=== PATIENT | male | born 1940 | race Caucasian/White ===

== ENCOUNTER 2018-03-28 13:32 | Inpatient (IN) | payer MEDICARE ==
[2018-03-28] MEDS ORDERED: Adacel (T-DAP) 0.5 ML VIAL ONE (14:07)
[2018-03-28] MEDS ORDERED: Morphine 4 MG/ML VIAL ONE ×3 (14:07→17:06)
[2018-03-28 14:31] LABS: #Basophils 0.2 thou/uL (0.0-0.2); #Lymphocytes 2.7 thou/uL (1.20-3.40); #Monocytes 0.7 thou/uL (0.11-0.59); #Neutrophils 4.7 thou/uL (1.40-6.50); %Basophils 2.1 % (0.0-1.0); %Eosinophils 10.4 % (0.0-10.0); %Lymphocytes 29.7 % (21.0-51.0); %Monocytes 7.3 % (0.0-10.0); %Neutrophils 50.6 % (42.0-75.0); Hemoglobin 11.7 g/dL (14.0-18.0); Mean Corpuscular HGB CONC 33.2 g/dL (32.0-36.0); Mean Corpuscular Hemoglobin 30.6 pg (27.0-31.0); Mean Corpuscular Volume 92.1 fl (80.0-94.0); Mean Platelet Volume 8.3 fL (7.4-10.4); Platelet Count 159 thou/uL (130-400); RBC Distribution Width 12.2 % (11.5-14.5); Red Blood Cell (RBC) Count 3.84 mill/uL (4.70-6.10); White Blood Cell (WBC) Count 9.3 thou/uL (4.8-10.8)
[2018-03-28 14:37] LABS: INR-International Normal Ratio 1.1; Prothrombin Time 14.5 SEC (12.0-14.7)
[2018-03-28 14:38] LABS: PTT 27.7 SEC (22.9-36.1)
[2018-03-28 14:50] LABS: ALT (SGPT) 26 U/L (8-55); AST (SGOT) 44 U/L (5-34); Albumin 3.4 g/dL (3.4-4.8); Alkaline Phosphatase 77 U/L (40-150); Anion Gap 9 mmol/L (10-20); BUN (Urea Nitrogen) 18 mg/dL (8.4-25.7); Bilirubin, Total 0.9 mg/dL (0.2-1.2); Calc. Creatinine Clearance 0 mL/min (70-130); Calcium 8.8 mg/dL (7.8-10.44); Carbon Dioxide 29 mmol/L (23-31); Chloride 101 mmol/L (98-107); Estimated GFR-MDRD 37; Globulin 2.7 g/dL (2.4-3.5); Glucose 104 mg/dL (83-110); Potassium 3.3 mmol/L (3.5-5.1); Protein, Total 6.1 g/dL (5.8-8.1); Sodium 136 mmol/L (136-145)
[2018-03-28] MEDS ORDERED: Dexamethasone 20 MG/5 ML VIAL ONE (15:26)
[2018-03-28] MEDS ORDERED: PROPOFOL 200 MG/20 ML VIAL ONE (15:26)
[2018-03-28] MEDS ORDERED: Ondansetron HCl/PF 4 MG/2 ML Vial ONE (15:26)
--- NOTE | 2018-03-28 15:58 | RAD ---
PORTABLE CHEST: Date: 03/28/18 HISTORY: Preop. FINDINGS: Heart size and mediastinum are within normal limits. There are atherosclerotic changes of the aorta. Coronary stent is noted. Lungs are clear of infiltrates. No signs of failure. IMPRESSION: Borderline heart size. No acute findings. POS: [facility]
--- NOTE | 2018-03-28 16:03 | RAD ---
RIGHT HIP 2 VIEWS: Date: 03/28/18 HISTORY: Right hip pain. FINDINGS: There is deformity of the subcapital region of the femoral neck which appears to represent a subcapit al femoral neck fracture. IMPRESSION: There is some deformity of the subcapital region of the femoral neck compatible with a subcapital fem oral neck fracture. POS: [facility]
[2018-03-28] MEDS ORDERED: Ondansetron HCl/PF 4 MG/2 ML Vial IVP PRN (16:04)
[2018-03-28] MEDS ORDERED: Ondansetron ODT 4 MG TAB PO PRN (16:04)
[2018-03-28] MEDS ORDERED: Dextrose 5% in Water 1,000 ML IV PRN (16:04)
[2018-03-28] MEDS ORDERED: traMADol HCl 50 MG TAB PO PRN (16:04)
[2018-03-28] MEDS ORDERED: Morphine 4 MG/ML VIAL SLOW IVP PRN ×2 (16:04)
[2018-03-28] MEDS ORDERED: Dextrose 50% Abboject 50 ML SYRINGE SLOW IVP PRN (16:04)
[2018-03-28] MEDS ORDERED: Cyclobenzaprine 10 MG TAB PO PRN (16:04)
--- NOTE | 2018-03-28 16:07 | RAD ---
AP PELVIS: Date: 03/28/18 HISTORY: Fall with right hip pain. FINDINGS: The bones are demineralized. Arthritic changes of both hips are noted. There is deformity to the subc apital region to the right femoral neck, highly suspicious for subcapital femoral neck fracture. Ther e are atherosclerotic changes of the vessels. IMPRESSION: Subcapital fracture right femoral neck. POS: [facility]
[2018-03-28] MEDS ORDERED: CEFAZOLIN/Water 2 GM/20 ML SYRINGE ONE (16:49)
[2018-03-28] MEDS ORDERED: Acetaminophen 1,000 MG in Premix Bag 1 BAG IVPB SCH (18:00)
[2018-03-28] MEDS ORDERED: CEFAZOLIN/Water 2 GM/20 ML SYRINGE SLOW IVP SCH (19:00)
--- NOTE | 2018-03-28 19:06 | RAD ---
TWO VIEWS RIGHT HIP: History: Right hip fracture. FINDINGS: Two intraoperative radiographs submitted. There has been placement of transosseous screws across the right femoral neck fracture. Proximal distal fracture fragments are in good anatomic alignment. IMPRESSION: Open reduction interval fixation of right femoral neck fractures. POS: [facility]
--- NOTE | 2018-03-28 20:09 | HP ---
DATE OF ADMISSION: 03/28/2018 REQUESTING PHYSICIAN: Dr. Mcbride. ATTENDING SURGEON: Dr. Sinclair. CONSULTATION: Orthopedics, Dr. Zepeda. HISTORY OF PRESENT ILLNESS: The patient is a 78-year-old man who was transferred here from [facility] in [place] with a reported right femoral neck fracture. The patient repo rts falling while in the airport in [facility] on 03/26/2018. He was able to make the trans[place]antic zainab urney back home and after continuing to have significant pain and decreased ability to ambulate, he w ent into the emergency department there and underwent evaluation and was noted to have femoral neck f racture, at which time he was transferred to our facility for orthopedic intervention. We were asked to admit the patient and obtain the orthopedic consultation. ALLERGIES: None. CURRENT MEDICATIONS: Plavix, pravastatin, amlodipine, carvedilol. PAST MEDICAL HISTORY: Hyperlipidemia, hypertension, coronary artery disease, abdominal aortic aneury sm. PAST SURGICAL HISTORY: Cardiac stent x2, right kidney stent this month. SOCIAL HISTORY: The patient lives at home with his . Denies drug, alcohol, or tobacco use. REVIEW OF SYSTEMS: A 10-point review of systems is negative, unless otherwise stated. PHYSICAL EXAMINATION: VITAL SIGNS: Blood pressure 165/89, heart rate 60, respirations 16, oxygen saturation is 98% on room air, temperature is 98.5. GENERAL: The patient is resting comfortably in bed. He is awake, alert, oriented x3. [place] coma scale is 15. HEENT: Head is normocephalic, atraumatic. Eyes: Extraocular motions intact. PERRLA bilaterally. Ears are atraumatic without discharge. Oropharynx is clear. NECK: Nontender. Trachea is midline. No JVD. CHEST: Clear to auscultation with good inspiratory and expiratory effort. HEART: Regular rate and rhythm. ABDOMEN: Soft, flat, nontender with active bowel sounds. Pelvis is stable with tenderness to palpat ion to the right hip consistent with his fracture. EXTREMITIES: The patient is neurovascularly intact x4. Capillary refill is less than 3 seconds. Pu lses are 2+. BACK: By report is nontender and atraumatic. LABORATORY DATA: White blood cell count 9.3, hemoglobin 11.7, hematocrit 35.3, platelets 159. Sodiu m 136, potassium 3.3, chloride 101, CO2 of 29, BUN 18, creatinine 1.81, glucose 104. LFTs are unrema rkable. PTT 30, PT 15, INR 1.1. RADIOGRAPHS: AP chest shows borderline heart size, no acute findings. Radiographs of the right hip show deformity of the subcapital region of the femoral neck compatible with a subcapital femoral neck fracture. AP pelvis shows a subcapital fracture of the right femoral neck. ASSESSMENT AND PLAN: 1. Status post ground level fall remote x3 days. 2. Right subcapital femoral neck fracture. 3. Pain secondary to acute trauma. Plan will be to admit the patient to the surgical floor after consultation with Orthopedics. They di d evaluate the patient and because of his n.p.o. status, they will be able to take him to the operati ng room today and do his procedure. Afterwards, we will have the patient moved to the surgical floor for pain control, pulmonary toilet, gastritis, mechanical DVT prophylaxis and start physical and occ upational therapy tomorrow. We will eventually wait for placement.
[2018-03-28] MEDS: Sodium Chloride 0.9% 1,000 ML IV SCH (21:10)
[2018-03-28] MEDS: Famotidine 20 MG TAB PO SCH (21:11)
[2018-03-28 21:48] VITALS: BMI 24.3
[2018-03-29] MEDS: Sodium Chloride 0.9% 1,000 ML IV SCH ×3 (00:14→18:14)
[2018-03-29] MEDS: CEFAZOLIN/Water 2 GM/20 ML SYRINGE SLOW IVP SCH ×3 (01:04→18:08)
[2018-03-29] MEDS: hydrALAZINE 20 MG/ML VIAL SLOW IVP PRN (03:53)
[2018-03-29 05:02] LABS: #Basophils 0.1 thou/uL (0.0-0.2); #Lymphocytes 2.7 thou/uL (1.20-3.40); #Monocytes 0.4 thou/uL (0.11-0.59); #Neutrophils 4.9 thou/uL (1.40-6.50); %Basophils 1.2 % (0.0-1.0); %Eosinophils 0.5 % (0.0-10.0); %Lymphocytes 32.5 % (21.0-51.0); %Monocytes 5.4 % (0.0-10.0); %Neutrophils 60.4 % (42.0-75.0); Hemoglobin 11.5 g/dL (14.0-18.0); Mean Corpuscular HGB CONC 33.3 g/dL (32.0-36.0); Mean Corpuscular Hemoglobin 30.7 pg (27.0-31.0); Mean Platelet Volume 8.5 fL (7.4-10.4); Platelet Count 156 thou/uL (130-400); RBC Distribution Width 12.1 % (11.5-14.5); Red Blood Cell (RBC) Count 3.74 mill/uL (4.70-6.10); White Blood Cell (WBC) Count 8.2 thou/uL (4.8-10.8)
[2018-03-29 05:18] LABS: Anion Gap 10 mmol/L (10-20); BUN (Urea Nitrogen) 15 mg/dL (8.4-25.7); Calc. Creatinine Clearance 48 mL/min (70-130); Calcium 8.4 mg/dL (7.8-10.44); Carbon Dioxide 26 mmol/L (23-31); Chloride 106 mmol/L (98-107); Estimated GFR-MDRD 50; Glucose 127 mg/dL (83-110); Potassium 3.6 mmol/L (3.5-5.1); Sodium 138 mmol/L (136-145)
[2018-03-29] MEDS: Levothyroxine Sodium 125 MCG TAB PO SCH (06:02)
[2018-03-29] MEDS: Acetaminophen 325 MG TAB PO PRN ×2 (09:17→16:43)
[2018-03-29] MEDS: traMADol HCl 50 MG TAB PO PRN ×2 (09:17→16:43)
[2018-03-29] MEDS: Amlodipine 5 MG TAB PO SCH (09:17)
[2018-03-29] MEDS ORDERED: Clopidogrel Bisulfate 75 MG TAB PO SCH (10:45)
[2018-03-29] MEDS: Carvedilol 6.25 MG TAB PO SCH ×2 (10:54→20:40)
--- NOTE | 2018-03-29 13:56 | PRG ---
DATE OF SERVICE: 03/29/2018 SUBJECTIVE: The patient is hospital day 2, postop day #1 status post ground level fall that he had 3 days prior to presentation here in which he sustained a right femoral neck fracture. The patient un dernt orthopedic surgery yesterday. He tolerated this procedure well. This morning he was sitting up in bed without assistance. He has no complaints, no issues overnight, he is tolerating a diet th is morning. He states his pain is controlled. He is about to start working with physical therapy. PHYSICAL EXAMINATION: VITAL SIGNS: Temperature is 97.5, heart rate 60, blood pressure 150/77, respirations 18, oxygen satu ration is 96% on room air. GENERAL: The patient is awake, alert, and oriented x3. [place] coma scale is 15. HEENT: Unremarkable. LUNGS: Clear to auscultation with good inspiratory and expiratory effort. HEART: Regular rate and rhythm. ABDOMEN: Soft, flat, nontender with active bowel sounds. EXTREMITIES: Neurovascularly intact x4. Postop dressing is clean, dry, and intact. LABORATORY DATA: White blood cell count 8.2, hemoglobin 11.5, hematocrit 34.4, platelets 156. Sodiu m 138, potassium 3.6, chloride 106, CO2 26, BUN 15, creatinine 1.39, glucose 127. No radiographs to review this morning. ASSESSMENT AND PLAN: 1. Status post ground level fall with delayed presentation. 2. Status post open reduction internal fixation of right hip fracture. The plan will be to continue supportive care, physical and occupational therapy and await final place ment decision.
[2018-03-29] MEDS: Famotidine 20 MG TAB PO SCH (20:19)
[2018-03-29] MEDS ORDERED: Pravastatin Sodium 20 MG TAB PO SCH (21:00)
[2018-03-30] MEDS: Sodium Chloride 0.9% 1,000 ML IV SCH (00:35)
[2018-03-30] MEDS: Acetaminophen 325 MG TAB PO PRN ×3 (01:28→14:03)
[2018-03-30] MEDS: traMADol HCl 50 MG TAB PO PRN ×3 (01:29→14:04)
[2018-03-30] MEDS: hydrALAZINE 20 MG/ML VIAL SLOW IVP PRN (04:23)
[2018-03-30] MEDS: Levothyroxine Sodium 125 MCG TAB PO SCH (06:52)
[2018-03-30] MEDS: Amlodipine 5 MG TAB PO SCH (07:43)
[2018-03-30] MEDS ORDERED: Polyethylene Glycol 3350 17 GM Packet PO SCH (09:00)
[2018-03-30] MEDS ORDERED: Clopidogrel Bisulfate 75 MG TAB PO SCH (09:00)
[2018-03-30] MEDS ORDERED: Senokot S 8.6-50 MG TAB PO SCH (09:00)
[2018-03-30 12:48] VITALS: BP 130/74; TEMP 98.6
--- NOTE | 2018-03-31 11:02 | OP ---
DATE OF SURGERY: 03/28/2018 PREOPERATIVE DIAGNOSIS: Right femoral neck fracture. POSTOPERATIVE DIAGNOSIS: Right femoral neck fracture. SURGICAL PROCEDURE: Closed reduction and percutaneous screw fixation of right femoral neck. ANESTHESIA: General. SURGEON: Edouard Zepeda MD BLOOD LOSS: 10 mL. IMPLANTS: Synthes 7.3-mm cannulated screws x3. COMPLICATIONS: None. DRAINS: None. SPECIMEN: None. OUTCOME: Satisfactory. INDICATIONS: The patient is a pleasant 78-year-old gentleman who fell while in the [place] in [facility] 2 days prior to this admission. Upon return to [facility], he presented to his local emergency room where x-rays demonstrated an impacted, but minimally displaced femoral neck fracture. The maggie ent was subsequently transferred to [facility] for definitive care. Preoperatively, I have discussed with the patient treatment options, which included but are not limited to nonsurgical management, ca nnulated screw fixation, hemiarthroplasty, or total hip arthroplasty. After discussion of the relati ve risks and benefits of each, we have decided upon cannulated screw stabilization. Informed consent has been obtained. I believe all questions have been answered. DESCRIPTION OF PROCEDURE: The patient was brought to the operating room and a time-out performed, fo llowed by induction of general anesthesia. Next, the patient was positioned on the fracture table wi th the affected right lower extremity held in longitudinal traction and the left lower extremity slig htly scissored, so that AP and lateral C-arm images of the right hip could be obtained. A sterile pr ep and drape was then performed of the right lateral thigh. Next, a small 1-inch incision was made j ust distal to the tip of the greater trochanter. After skin was sharply incised, dissection was jason ied down bluntly. Next, a threaded guidewire was passed from the lateral cortex of the femur up the femoral neck into the femoral head in a centralized, but inferior position. This was followed by ins ertion of 2 additional threaded guidewires, one superior and anterior to the first and the other supe rior and posterior to the first. Once an acceptable spread of these threaded guidewires was achieved , measurement off the guidewires was performed to choose the appropriate length, 7.3 mm short-threade d cannulated screw. Next, a drill was used to perforate the lateral cortex of the femur around each of the threaded guidewires, and then appropriate length cannulated screws were inserted under C-arm g uidance. This resulted in excellent stabilization of the fracture and appropriate position of hardwa re. The small skin incision was then irrigated with bulb syringe and closed in layers with 0 Vicryl for a fascial closure, 2-0 Vicryl subcutaneously, and deny for the skin. A Xeroform gauze tape dr desmond was applied to the thigh and then the patient was transferred to recovery room in stable condi tion. There were no complications. The patient tolerated the procedure well.
== END 2018-03-30 15:00 | disposition home or self-care (01) | DRG 482 ==
LOC: ERS 13:32 → SJJU 16:29 → SDC 16:38 → SJJU 18:45
PROVIDERS: ADMIT Surgery; ATTEND Surgery
PROC: 0QS634Z Reposition Right Upper Femur with Internal Fixation Device, Percutaneous Approach (ICD-10-PCS; principal; 2018-03-28)
DX: S72.011A Unspecified intracapsular fracture of right femur, initial encounter for closed fracture (principal); W18.30XA Fall on same level, unspecified, initial encounter; Y92.520 Airport as the place of occurrence of the external cause; E78.5 Hyperlipidemia, unspecified; I10 Essential (primary) hypertension; I25.10 Atherosclerotic heart disease of native coronary artery without angina pectoris; Z95.5 Presence of coronary angioplasty implant and graft; R40.2413 Glasgow coma scale score 13-15, at hospital admission
CPT/HCPCS: 36415; 71045; 72170; 76001; 80048; 80053; 85025; 85610; 85730; 86850; 86900; 86901; 90471; 90715; 93005; 94760; 96361; 96374; C1713; C1769; G8978-GP-CJ; G8979-GP-CI; G8987-GO-CK; G8988-GO-CI; J0131; J0360; J1100; J2270; J2405; J2704

== ENCOUNTER 2018-09-23 09:40 | Day surgery (SDC) | payer MEDICARE ==
[2018-09-22 15:05] VITALS: BMI 22.8
[2018-09-23 10:42] LABS: Hemoglobin 12.3 g/dL (14.0-18.0); Mean Corpuscular HGB CONC 32.8 g/dL (32.0-36.0); Mean Corpuscular Hemoglobin 29.8 pg (27.0-31.0); Mean Corpuscular Volume 90.9 fL (78.0-98.0); Platelet Count 229 thou/uL (130-400); RBC Distribution Width 12.1 % (11.5-14.5); Red Blood Cell (RBC) Count 4.13 mill/uL (4.70-6.10); White Blood Cell (WBC) Count 8.7 thou/uL (4.8-10.8)
[2018-09-23 11:07] LABS: Anion Gap 12 mmol/L (10-20); BUN (Urea Nitrogen) 14 mg/dL (8.4-25.7); Calc. Creatinine Clearance 41 mL/min (70-130); Calcium 9.5 mg/dL (7.8-10.44); Carbon Dioxide 28 mmol/L (23-31); Chloride 103 mmol/L (98-107); Estimated GFR-MDRD 45; Glucose 85 mg/dL (83-110); Potassium 3.9 mmol/L (3.5-5.1); Sodium 139 mmol/L (136-145)
[2018-09-23] MEDS ORDERED: Fentanyl 100 MCG/2 ML VIAL ONE ×3 (11:41→13:16)
[2018-09-23] MEDS ORDERED: CEFAZOLIN 2 GM/50 ML BAG ONE (11:58)
[2018-09-23] MEDS ORDERED: Bupivacaine HCl 0.5%/Epinephrine 1:200,000/PF 30 ml Vial ONE (12:06)
[2018-09-23] MEDS ORDERED: Triamcinolone 40 MG/ML VIAL ONE (12:06)
--- NOTE | 2018-09-23 13:03 | OP ---
DATE OF PROCEDURE: 09/23/2018 OPERATION: Right hip hardware removal and right knee corticosteroid injection. PREOPERATIVE DIAGNOSES: Right hip hardware related pain and right knee osteoarthritis. POSTOPERATIVE DIAGNOSES: Right hip hardware related pain and right knee osteoarthritis. COMPLICATIONS: None. ESTIMATED BLOOD LOSS: 50 mL. SURGEON: Armand Clay M.D. IMPLANTS: None. INDICATIONS FOR PROCEDURE: Mr. Burns is a 78-year-old male who fell and fractured the femoral neck of his right hip. He was treated with percutaneous screw placement. His fracture healed; however, h e has been having hardware related pain. He was indicated for hardware removal. He also has osteoar thritis of the knee and was indicated for injection while he is asleep under anesthesia. DESCRIPTION OF PROCEDURE: Mr. Burns was identified in the preoperative holding area. His correct e xtremity was marked. He was carried to the operating room. He was positioned supine. General anest hesia was induced. A multidisciplinary timeout was performed. The right lower extremity was prepped and draped in sterile fashion. We began the procedure by injecting the patient's anterolateral knee . A 40 mg of Kenalog and 6 mL of Marcaine were injected into the anterior lateral soft spot. At thi s point, we began hardware removal. We made a small incision over the proximal thigh. We dissected down through the subcutaneous tissues to the fascia which was opened. We then palpated the screw hea ds. Each screw was removed sequentially with an appropriate screwdriver. We took x-ray images confi rming all hardware was removed at this point. We thoroughly irrigated with copious lavage. We then closed in layers including fascia and subcutaneous tissue. A sterile dressing was applied. The maggie ent was taken to the recovery room in good condition.
[2018-09-23] MEDS ORDERED: PROPOFOL 200 MG/20 ML VIAL ONE (13:39)
[2018-09-23] MEDS ORDERED: Glycopyrrolate 0.2 MG/ML 5 ML SYRINGE ONE (13:39)
[2018-09-23] MEDS ORDERED: Dexamethasone 20 MG/5 ML VIAL ONE (13:39)
[2018-09-23] MEDS ORDERED: Ondansetron PF 4 MG/2 ML Vial ONE (13:39)
[2018-09-23] MEDS ORDERED: HYDROcodone/Acetaminophen 5/325 mg Tablet ONE (13:44)
--- NOTE | 2018-09-23 19:16 | RAD ---
AP VIEW RIGHT HIP: 09/23/18 HISTORY: Hardware removal. Single intraoperative radiograph right hip obtained. Images demonstrate removal of the three transosseous screws. Femoral head and acetabulum are unremarkable. IMPRESSION: Removal of right proximal femoral hardware. POS: [facility]
== END 2018-09-23 14:55 | disposition home or self-care (01) ==
LOC: SDC 09:40
PROVIDERS: ATTEND Orthopaedic Surgery
PROC: 3E0U33Z Introduction of Anti-inflammatory into Joints, Percutaneous Approach (ICD-10-PCS; principal; 2018-09-23)
PROC: 0SP904Z Removal of Internal Fixation Device from Right Hip Joint, Open Approach (ICD-10-PCS; 2018-09-23)
DX: M17.11 Unilateral primary osteoarthritis, right knee (principal); T84.84XA Pain due to internal orthopedic prosthetic devices, implants and grafts, initial encounter; Z79.82 Long term (current) use of aspirin; Z79.899 Other long term (current) drug therapy
CPT/HCPCS: 76001; 80048; 85027; 93005; 93010; 96374; J0670; J1100; J2405; J2704; J3010; J3301

== ENCOUNTER 2022-06-24 10:00 | Inpatient (IN) | payer MEDICARE ==
[2022-06-26] MEDS ORDERED: Midazolam HCl 2 mg/2 ml Vial ONE (06:31)
[2022-06-26] MEDS ORDERED: SUGAMMADEX SODIUM 200 MG/2 ML VIAL ONE (06:32)
[2022-06-26] MEDS ORDERED: fentaNYL Citrate/PF 100 MCG/2 ML SYRINGE ONE (06:32)
[2022-06-26] MEDS ORDERED: HYDROmorphone 0.5 MG/0.5 ML SYRINGE ONE (06:32)
[2022-06-26] MEDS ORDERED: Protamine Sulfate 50 MG/5 ML VIAL ONE (06:36)
[2022-06-26] MEDS ORDERED: Heparin 5,000 UNITS/ML VIAL ONE (06:37)
[2022-06-26] MEDS ORDERED: Bupivacaine/Epinephrine 0.25% 30 ML VIAL ONE (06:37)
[2022-06-26] MEDS ORDERED: PROPOFOL 200 MG/20 ML VIAL ONE (07:37)
[2022-06-26] MEDS ORDERED: Ondansetron PF 4 MG/2 ML Vial ONE (07:37)
[2022-06-26] MEDS ORDERED: Rocuronium Bromide 10 MG/ML (10ML VIAL) ONE (07:37)
[2022-06-26] MEDS ORDERED: Lidocaine 1% PF 5 ML VIAL ONE (07:37)
[2022-06-26] MEDS ORDERED: Fentanyl 100 MCG/2 ML VIAL SLOW IVP PRN ×2 (09:29)
[2022-06-26] MEDS ORDERED: Acetaminophen 325 MG TAB PO PRN (09:29)
[2022-06-26] MEDS ORDERED: traMADol HCl 50 MG TAB PO PRN (09:29)
[2022-06-26] MEDS ORDERED: Phenylephrine 40 MG in Sodium Chloride 0.9% 250 ML 246 ML IVPB PRN (09:29)
[2022-06-26] MEDS ORDERED: Ondansetron PF 4 MG/2 ML Vial IVP PRN (09:29)
[2022-06-26] MEDS ORDERED: niCARdipine 25 MG in Sodium Chloride 0.9% 250 ML 250 ML IVPB PRN (09:29)
[2022-06-26 11:25] VITALS: BMI 51.1
[2022-06-26] MEDS: CEFAZOLIN 2 GM in Sodium Chloride 0.9% 100 ML IVPB SCH ×2 (12:42→21:48)
[2022-06-26] MEDS: Sodium Chloride 0.9% 1,000 ML IV SCH ×2 (12:44→18:34)
[2022-06-26] MEDS ORDERED: Atorvastatin Calcium 40 MG TAB PO SCH (21:00)
[2022-06-26] MEDS: Carvedilol 6.25 MG TAB PO SCH (21:48)
[2022-06-26] MEDS: Minoxidil 10 MG TAB PO SCH (21:48)
[2022-06-26 21:49] VITALS: BP 135/75
[2022-06-27] MEDS: CEFAZOLIN 2 GM in Sodium Chloride 0.9% 100 ML IVPB SCH (05:02)
[2022-06-27] MEDS: Sodium Chloride 0.9% 1,000 ML IV SCH (05:52)
[2022-06-27] MEDS ORDERED: Levothyroxine Sodium 125 MCG TAB PO SCH (06:00)
[2022-06-27] MEDS: Minoxidil 10 MG TAB PO SCH (08:06)
[2022-06-27] MEDS: Carvedilol 6.25 MG TAB PO SCH (08:06)
[2022-06-27 08:49] VITALS: TEMP 98.6
[2022-06-27] MEDS ORDERED: Triamterene/Hydrochlorothiazide 37.5 mg/25 mg Tablet PO SCH (09:00)
[2022-06-27] MEDS ORDERED: Tamsulosin HCl 0.4 MG CAP PO SCH (09:00)
[2022-06-27] MEDS ORDERED: Aspirin Chewable 81 MG TAB PO SCH (09:00)
[2022-06-27] MEDS ORDERED: Clopidogrel Bisulfate 75 MG TAB PO SCH (09:00)
== END 2022-06-27 09:35 | disposition home or self-care (01) | DRG 39 ==
LOC: SURG A 06-26 05:36 → CCU 06-26 10:44
PROVIDERS: ADMIT Thoracic Surgery (Cardiothoracic Vascular Surgery); ATTEND Thoracic Surgery (Cardiothoracic Vascular Surgery)
PROC: 03CK0ZZ Extirpation of Matter from Right Internal Carotid Artery, Open Approach (ICD-10-PCS; principal; 2022-06-26)
PROC: 03UK0KZ Supplement Right Internal Carotid Artery with Nonautologous Tissue Substitute, Open Approach (ICD-10-PCS; 2022-06-26)
DX: I65.23 Occlusion and stenosis of bilateral carotid arteries (principal); Z20.822 Contact with and (suspected) exposure to COVID-19; I25.10 Atherosclerotic heart disease of native coronary artery without angina pectoris; E78.5 Hyperlipidemia, unspecified; I10 Essential (primary) hypertension; E03.9 Hypothyroidism, unspecified; Z79.899 Other long term (current) drug therapy; Z79.890 Hormone replacement therapy; Z79.02 Long term (current) use of antithrombotics/antiplatelets; Z85.828 Personal history of other malignant neoplasm of skin; Z86.73 Personal history of transient ischemic attack (TIA), and cerebral infarction without residual deficits; Z87.891 Personal history of nicotine dependence
CPT/HCPCS: 80048; 85027; 87811; C1768; J0690; J1170; J1644; J2250; J2405; J2704; J2720; J3490; J7050

== ENCOUNTER 2022-06-24 10:20 | Outpatient (CLI) | payer MEDICARE ==
[2022-06-24 12:12] LABS: Hemoglobin 11.8 g/dL (13.5-17.5); Mean Corpuscular HGB CONC 34.1 g/dL (32.0-36.0); Mean Corpuscular Hemoglobin 28.8 pg (27.0-33.0); Mean Corpuscular Volume 84.4 fl (81.2-95.1); Mean Platelet Volume 10.9 fl (7.4-10.4); Platelet Count 296 10x3/uL (150-450)
[2022-06-24 12:28] LABS: Anion Gap 13 mmol/L (10-20); BUN (Urea Nitrogen) 15 mg/dL (8.4-25.7); Calc. Creatinine Clearance 0 mL/min (70-130); Calcium 9.9 mg/dL (7.8-10.44); Carbon Dioxide 30 mmol/L (23-31); Chloride 98 mmol/L (98-107); Estimated GFR 47; Glucose 83 mg/dL (83-110); Potassium 4.2 mmol/L (3.5-5.1); Sodium 137 mmol/L (136-145)
== END 2022-06-24 10:21 | disposition home or self-care (01) ==
LOC: LABBT 10:20
PROVIDERS: ATTEND Thoracic Surgery (Cardiothoracic Vascular Surgery)
DX: Z01.812 Encounter for preprocedural laboratory examination (principal); Z20.822 Contact with and (suspected) exposure to COVID-19
CPT/HCPCS: 80048; 85027; 87811